=== PATIENT | male | born 1955 | race Caucasian/White ===

== ENCOUNTER 2017-11-09 08:36 | Outpatient (CLI) | payer BC | END 2017-11-09 08:46 | disposition home or self-care (01) | LOC: LAB 08:36 | DX: E78.2 Mixed hyperlipidemia (principal); Z13.89 Encounter for screening for other disorder; Z13.811 Encounter for screening for lower gastrointestinal disorder; Z13.0 Encounter for screening for diseases of the blood and blood-forming organs and certain disorders involving the immune mechanism; E55.9 Vitamin D deficiency, unspecified ==

== ENCOUNTER 2017-12-07 09:23 | Outpatient (CLI) | payer BC | END 2017-12-07 09:30 | disposition home or self-care (01) | LOC: LAB 09:23 | DX: N40.0 Benign prostatic hyperplasia without lower urinary tract symptoms (principal); N20.0 Calculus of kidney; Z12.5 Encounter for screening for malignant neoplasm of prostate; R31.9 Hematuria, unspecified ==

== ENCOUNTER 2017-12-07 09:57 | Outpatient (CLI) | payer BC | END 2017-12-07 10:14 | disposition home or self-care (01) | LOC: SONOGRAMA 09:57 → MAMO-SONO 10:45 | DX: N40.0 Benign prostatic hyperplasia without lower urinary tract symptoms (principal); N20.0 Calculus of kidney; R31.9 Hematuria, unspecified ==

== ENCOUNTER 2017-12-23 14:34 | Outpatient (CLI) | payer BC | END 2017-12-23 14:36 | disposition home or self-care (01) | LOC: SONOGRAMA 14:34 | DX: M75.52 Bursitis of left shoulder (principal) ==

== ENCOUNTER 2017-12-23 14:40 | Outpatient (CLI) | payer BC | END 2017-12-23 14:42 | disposition home or self-care (01) | LOC: RAD 14:40 | DX: M75.52 Bursitis of left shoulder (principal) ==

== ENCOUNTER 2018-06-14 08:10 | Outpatient (CLI) | payer BC | END 2018-06-14 08:20 | disposition home or self-care (01) | LOC: LAB 08:10 | DX: E78.2 Mixed hyperlipidemia (principal); E06.0 Acute thyroiditis ==

== ENCOUNTER 2018-08-04 15:27 | Outpatient (CLI) | payer BC ==
[~2018-08-04 15:27] MED LIST: KETO10TA2 PO; TAMS0.4C PO
== END 2018-08-04 16:14 | disposition home or self-care (01) ==
LOC: RAD 15:27 → TOM 15:27 → RAD 16:14
DX: M75.112 Incomplete rotator cuff tear or rupture of left shoulder, not specified as traumatic (principal)

== ENCOUNTER 2018-09-04 12:35 | Outpatient (CLI) | payer BC | END 2018-09-04 13:05 | disposition home or self-care (01) | LOC: LAB 12:35 | DX: R97.20 Elevated prostate specific antigen [PSA] (principal) ==

== ENCOUNTER 2018-12-03 14:49 | Outpatient (CLI) | payer BC | END 2018-12-03 14:58 | disposition home or self-care (01) | LOC: RAD 14:49 | DX: R10.2 Pelvic and perineal pain (principal) ==

== ENCOUNTER 2018-12-26 16:07 | Outpatient (CLI) | payer BC | END 2018-12-26 16:26 | disposition home or self-care (01) | LOC: LAB 16:07 | DX: E78.2 Mixed hyperlipidemia (principal); E06.9 Thyroiditis, unspecified; R97.20 Elevated prostate specific antigen [PSA] ==

== ENCOUNTER → 2019-07-25 07:37 | Outpatient (CLI) | payer BC | END | disposition home or self-care (01) | LOC: LAB 07:37 | DX: E78.2 Mixed hyperlipidemia (principal); E06.5 Other chronic thyroiditis ==

== ENCOUNTER → 2019-09-26 09:14 | Outpatient (CLI) | payer BC | END | disposition home or self-care (01) | LOC: LAB 09:14 | DX: R97.20 Elevated prostate specific antigen [PSA] (principal); C18.8 Malignant neoplasm of overlapping sites of colon; M85.80 Other specified disorders of bone density and structure, unspecified site; S82.209A Unspecified fracture of shaft of unspecified tibia, initial encounter for closed fracture; Z00.00 Encounter for general adult medical examination without abnormal findings ==